=== PATIENT | male | born 1990 | race African-American/Black ===

== ENCOUNTER 2018-04-07 11:37 | Emergency (ER) | payer SELFPAY ==
[~2018-04-07] VITALS: Ht 185.4 cm; Wt 75.0 kg
[2018-04-07] MEDS ORDERED: HYDROCODONE/ACETAMINOPHEN 5/325MG TABLET PO ONE (12:15)
[2018-04-07 12:30] VITALS: BP 130/62
== END 2018-04-07 12:31 | disposition home or self-care (01) ==
LOC: ER 11:37
DX: L02.415 Cutaneous abscess of right lower limb (principal); Z88.0 Allergy status to penicillin
CPT/HCPCS: 10060; 99283